=== PATIENT | male | born 1965 | race Caucasian/White ===

== ENCOUNTER 2017-02-28 11:06 | Emergency (ER) | payer BC ==
[~2017-02-28] VITALS: Ht 182.9 cm; Wt 78.9 kg
[~2017-02-28 11:06] MED LIST: BENADRYL ALLE12.5 MG PO; BENTYL20 MG PO; COLACE100 MG PO; FLONASE16 G1 BOTH NARES; LAMISIL250 MG PO; NOHOMEMEDS; TIZANIDINE HCL2 MG PO; TYLENOL REGULA325 MG PO; ULTRAM50 MG PO; VALTREX1000 MG PO; ZYRTEC10 M3 PO
[2017-02-28 12:06] LABS: HEMATOCRIT 49.6 % (38.0-50.0); MCH 32.2 PG (29.0-34.0); MCHC 34.1 G/DL (30.0-36.0); MCV 94.5 FL (86-99); MEAN PLAT.VOLUME 10.4 uM^3 (9.0-12.4); PLATELET COUNT 225 K/uL (156-360); RBC DIS.WIDTH-CV 12.4 % (11.8-14.6); RBC DIS.WIDTH-SD 43.3 % (39-53); RED BLOOD COUNT 5.25 M/uL (4.00-5.50); WHITE BLOOD COUNT 7.7 K/uL (4.1-10.2)
[2017-02-28 12:18] LABS: CHLORIDE 105 mEq/L (99-109); POTASSIUM 4.3 mEq/L (3.7-5.4); SODIUM 143 mEq/L (136-147)
[2017-02-28 12:20] LABS: GLUCOSE 96 mg/dL (70-99)
[2017-02-28 12:22] LABS: ANION GAP 13 MEQ/L (2-14)
[2017-02-28 12:24] LABS: GFR ESTIMATE (CALCULATED) > 59 mL/min/
[2017-02-28 12:25] LABS: UREA NITROGEN (BUN) 9 mg/dL (9-23)
[2017-02-28] MEDS ORDERED: GABAPENTIN100 MG PO (13:15)
[2017-02-28 13:25] LABS: ADD MIUA? NO; BILIRUBIN NEGATIVE; BLOOD NEGATIVE; COLOR STRAW ((YELLOW)); GLUCOSE (STRIP) NEGATIVE; KETONES NEGATIVE; LEUKOCYTES NEGATIVE; NITRITE NEGATIVE; PROTEIN (STRIP) NEGATIVE; SPECIFIC GRAVITY 1.006 (1.000-1.030); UCUL ADDED? NO; UROBILINOGEN 0.2 MG/DL (0.2-1.0)
[2017-02-28 14:10] VITALS: BP 114/87
== END 2017-02-28 15:44 | disposition left against medical advice (07) ==
LOC: EME 11:06
DX: R10.31 Right lower quadrant pain (principal); F17.200 Nicotine dependence, unspecified, uncomplicated; Z88.8 Allergy status to other drugs, medicaments and biological substances; Z90.49 Acquired absence of other specified parts of digestive tract
CPT/HCPCS: 80048; 81003; 85027; 99281; 99283; J1885